=== PATIENT | male | born 1945 | race Caucasian/White ===

== ENCOUNTER 2019-11-10 11:18 | Inpatient (IN) | payer OTHER, MEDICAID ==
[~2019-11-10] VITALS: Ht 172.7 cm; Wt 86.7 kg
[2019-11-10] MEDS ORDERED: NORVASC5 MG PO (12:12)
[2019-11-10] MEDS ORDERED: Ventolin 02.5 MG/3 M NEB (12:12)
[2019-11-10] MEDS ORDERED: ARTIFICIAL TEAR1514 OU (12:13)
[2019-11-10] MEDS ORDERED: ASPIRIN81 M1 PO (12:15)
[2019-11-10] MEDS ORDERED: ATORVASTATIN CA40 M1 PO (12:18)
[2019-11-10] MEDS ORDERED: CHLORASEPTIC 1177 ML MM (12:19)
[2019-11-10] MEDS ORDERED: DEPAKOTE250 MG PO (12:20)
[2019-11-10] MEDS ORDERED: DEPAKOTE500 MG PO (12:21)
[2019-11-10] MEDS ORDERED: EXEL13.31 T (12:22)
[2019-11-10] MEDS ORDERED: NATURE'S BLEND F1 MG PO (12:27)
[2019-11-10] MEDS ORDERED: IRON325 M1 PO (12:27)
[2019-11-10] MEDS ORDERED: MUCINEX ER600 MG PO (12:28)
[2019-11-10] MEDS ORDERED: NAMENDA-21 PO (12:29)
[2019-11-10] MEDS ORDERED: REMERON15 M2 PO (12:30)
[2019-11-10] MEDS ORDERED: VALSARTAN320 MG PO (12:31)
[2019-11-10] MEDS ORDERED: REPLESTA50000 UNIT PO (12:32)
[2019-11-11 01:05] VITALS: BP 155/87
--- NOTE | 2019-11-11 01:05 | NUR ---
ROSSY TORRE a 74 year old M admitted via stretcher from the ADMITTING as a voluntary admission. Arrived on unit at 0105. ALLERGIES: MKA. Vital signs are: [id number] 155/87. The client's POA,Elli Patino,gave verbal consent for the following forms with stated understanding: Authorization For The Release of Medical Information, Clothing List, Consent to Voluntary Admission and Hospitalization, Consent and Release Forms/Receipt of Rights, Acknowledgement of Advance Directive Information, Behavioral Health Consent Form, and Informed Consent of Medications. Admitted under the services of Dr. SCOT CORNELL,[facility]. A search was conducted and hazardous articles were removed. Client was oriented to the unit. SANGEETHA FREY
--- NOTE | 2019-11-11 01:20 | NUR ---
Called and notified Dr. France admission to floor. Dr. Dennison said to place medical management under Dr. Conrad.
[2019-11-11 01:44] LABS: BASO % 0.2 % (0.0-1.0); HEMATOCRIT 37.5 % (42.0-52.0); HEMOGLOBIN 12.2 g/dl (14.0-18.0); LYMPH # 0.7 10*3/uL (1.3-4.4); LYMPH % 7.9 % (27.0-41.0); MEAN CELL VOLUME 91.5 fl (80.0-94.0); MEAN CORPUSCULAR HGB 29.8 pg (27.0-31.0); MEAN CORPUSCULAR HGB CONC 32.5 g/dl (33.0-37.0); MEAN PLATELET VOLUME 11.4 fl (9.6-12.3); MONO # 0.5 10*3/uL (0.1-1.0); MONO % 5.3 % (3.0-9.0); NEUT # 7.4 10*3/uL (2.3-7.9); NEUT % 86.1 % (47.0-73.0); PLATELET COUNT AUTOMATED 146 10*3/uL (130-400); RED CELL DISTRI WIDTH 13.6 % (0-14.5); WHITE BLOOD COUNT 8.5 10*3/uL (4.8-10.8)
[2019-11-11 01:59] LABS: ALBUMIN 3.5 gm/dl (3.1-4.5); ALKALINE PHOSPHATASE 73 U/L (45-117); BUN 21 mg/dl (7-24); CHLORIDE 104 mmol/L (98-107); CHOLESTEROL 120 mg/dL (<200); CREATININE 1.04 mg/dL (0.70-1.30); HDL CHOLESTEROL 64 mg/dl (40-60); LDL CHOLESTEROL 47 mg/dL (9-159); SGOT/AST 13 IU/L (3-35); SGPT/ALT 18 U/L (12-78); SODIUM 134 mmol/L (136-145); TOTAL PROTEIN 7.3 gm/dL (6.4-8.2); TRIGLYCERIDES 43 mg/dl (<150); VLDL CHOLESTEROL 9 mg/dL (6-40)
[2019-11-11 02:09] LABS: VALPROIC ACID (DEPAKENE) 33.5 ug/ml (50-100)
[2019-11-11 02:25] VITALS: BP 155/87
--- NOTE | 2019-11-11 05:55 | NUR ---
Patient slept 0 hours throughout shift. Q 15 minute safety checks continued and maintained.
[2019-11-11 07:43] LABS: VITAMIN D, 25-HYDROXY 44.1 ng/mL (30-100)
[2019-11-11 07:57] VITALS: BP 137/64
--- NOTE | 2019-11-11 08:00 | NUR ---
Treatment Plan meeting was held with TD Orosco, RN, AT, HEALTH PHYSICIST-S and Barrel Header in attendance. Plan for discharge Sat/. Pt. came to [facility] from [facility].
--- NOTE | 2019-11-11 09:27 | NUR ---
PHYSICAL THERAPY Screen [facility] Please consult PT if pt has a decline from baseline functioanl status Anny Webster PT
[2019-11-11 09:47] LABS: BILIRUBIN NEGATIVE (NEGATIVE); BLOOD NEGATIVE (NEGATIVE); CLARITY SL CLOUDY (CLEAR); COLOR YELLOW (YELLOW); GLUCOSE NEGATIVE (NEGATIVE); KETONE NEGATIVE (NEGATIVE); SPECIFIC GRAVITY 1.015 (1.005-1.030)
[2019-11-11 09:48] LABS: LEUKO ESTERASE NEGATIVE (NEGATIVE); NITRITE NEGATIVE (NEGATIVE); UROBILINOGEN 0.2 E.U./dl (0.2-1.0)
[2019-11-11 09:52] LABS: MUCOUS TRACE; WBC 0-2 wbc/hpf (0-5)
--- NOTE | 2019-11-11 09:55 | NUR ---
Spoke with Marilu nieves [facility]. Pt. is Economic Development Manager Resident at facility and will return at discharge. Discussed Discharge Plan and Faxed clinical Updates to facility .
--- NOTE | 2019-11-11 11:38 | NUR ---
AM GROUP PT ATTENDED MORNING GROUP THERAPY AND PARTICIPATED BY COLORING TO THE BEST OF HIS ABILITY AND LISTENING TO MUSIC. PT WAS QUIET AND ON TASK. PT EXHIBITED NO AGITATION OR AGGRESSION WHILE IN GROUP.
--- NOTE | 2019-11-11 15:39 | NUR ---
PM GROUP PT ATTENDED AFTERNOON GROUP THERAPY AND PARTICIPATED BY COLORING WITH MARKERS. PT WAS CONTENT THE ENTIRE GROUP TO "MESS" WITH THE MARKERS. PT EXHIBITED NO AGITATION OR AGGRESSION WHILE IN GROUP.
--- NOTE | 2019-11-11 16:07 | NUR ---
PT ALERT TO PERSON WITH CONFUSION AND MEMORY DEFICITS NOTED. IRRITABLE AT TIMES. PT UP AND DOWN OUT OF WHEEL CHAIR UNSTEADY. PT SWAYING SIDE TO SIDE WHILE STANDING UP. PERSONAL ALARM IN PLACE. PT CONTINUOUSLY GETTING UP DESPITE REDIRECTION. PT THEN PLACED IN NABEEL CHAIR TO CALM PATIENT.1:1 PROVIDED FOR THERAPEUTIC COMMUNICATION. ENCOURAGED PT TO ATTEND/PARTICIPATE IN GROUP. ENCOURAGE MEDICATION COMPLIANCE. NO INAPPROPRIATE DEFACTING NOTED. NO PHYSICAL OR VERBAL AGGRESSION NOTED. MEDICATION COMPLIANT WITHOUT DIFFICULTY. SEE [facility] FLOWSHEET FOR SPECIFIC MONITORING. PT ATTENDED GROUP AND PARTICIPATED. WAS COLORING HOWEVER WAS WITHDRAWN TO SELF. CONTINUE TO ENCOURAGE MEDICATION COMPLIANCE, ATTENDANCE/PARTICIPATION. CONTINUE TO PROVIDE 1:1 FOR THERAPEUTIC COMMUNICATION.
[2019-11-11 19:48] VITALS: BP 135/76
--- NOTE | 2019-11-11 22:47 | NUR ---
P--CONFUSION, ANGER ISSUES, VIOLENCE I--TRIED TO TALK WITH CLIENT AND LET HIM VENT. MEDICATED PER ORDERS EARLIER, BEDBATH COMPLETED WITH ASSIST OF 3. REDIRECTED AND REORIENTED R--BECAME PHYSICALLY VIOLENT DURING BATH, SCATCHING AT STAFF, TRYING TO BITE, KICKING AND PUNCHING. UNABLE TO REDIRECT P- MONITOR FOR CHANGES IN BEHAVIOR/MOOD AND SAFETY
--- NOTE | 2019-11-12 00:28 | NUR ---
ATIVAN EFFECTIVE AT THIS TIME
--- NOTE | 2019-11-12 04:33 | NUR ---
24 HR chart check completed.
--- NOTE | 2019-11-12 05:23 | NUR ---
SLEPT A BROKEN 3.5 HOURS IN CHAIR CLOSE TO NURSES STATION. REMAINS CONFUSED TO PLACE AND TIME. CONTINUE TO ATTEMPT REORIENTATION
--- NOTE | 2019-11-12 05:51 | NUR ---
INCONTINENT OF URINE. CLEANED UP AND CLOTHING CHANGED. VERY COOPERATIVE AND HELPFUL THIS MORNING. NO OUTBURTS AT THIS TIME. REFUSED ORAL CARE.
[2019-11-12 08:00] VITALS: BP 138/76
--- NOTE | 2019-11-12 08:00 | NUR ---
Treatment Plan meeting was held with Dr. Almaraz, RN, AT, WAREHOUSE FREIGHT HANDLER-S and Pharmacy Intake Coordinator in attendance. Plan for discharge next week. Patient will return to the [facility].
--- NOTE | 2019-11-12 08:14 | NUR ---
DR ROBIN ON UNIT TO SEE PATIENT
--- NOTE | 2019-11-12 12:02 | NUR ---
Family meeting held via the phone with pt's DPOAHC Elli Sukumar. Elli shared that pt and she have been for 30 years after a 23 yr marriage. Elli stated that pt has no one else and that is why Elli became involved in pt's life 18 years ago. Elli describes pt as "weird" in that pt does not like people and prefers to be a loner. 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 Pt served in the [employer] during [employer] War but was not involved in combat. D/C plan is for [facility].
--- NOTE | 2019-11-12 15:16 | NUR ---
PHYSICAL THERAPY Lesly completed moderate level of complexity [id number] recomend return to [facility] with further follow up therapy as approp. PT to work on transfers,amb,balance and strengthening. Anny Webster PT
--- NOTE | 2019-11-12 15:38 | NUR ---
PM GROUP PT WAS PRESENT FOR AFTERNOON GROUP THERAPY SEATED IN A NABEEL CHAIR. PT KEPT HIS EYES SHUT TIGHT EVEN WHEN "READING" THE NEWSPAPER. PT WAS REACHING AND HANDLING "SOMETHING" THAT WAS NOT THERE, WITH EYES CLOSED, OR WOULD GRAB SOMETHING ON THE TABLE AND "HANDLE" IT. PT EXHIBITED NO AGITATION OR AGGRESSION AND WOULD RESPOND WHEN SPOKEN TO WITHOUT OPENING HIS EYES.
--- NOTE | 2019-11-12 16:46 | NUR ---
P: COMBATIVE WITH HOC. PT WAS BITING, HITTING, AND KICKING THIS AM WITH HOC I: REDIRECTED PT. REORIENTED. GAVE STEP BY STEP INSTRUCTIONS AND PROMPTS ON WHAT WAS HAPPENING. R: PT WAS ABLE TO CALM DOWN WITH STEP BY STEP AND PROMPTING. HOC COMPLETED AND PLACED IN NABEEL CHAIR AGAIN. P: CONTINUE TO OFFER THERAPEUTIC COMMUNICATION. CONTINUE TO GIVE STEP BY STEP AND PROMPING FOR HOC BEING COMPLETED. REDIRECT AND REORIENT WHEN NEEDED. CONTINUE TO MONITOR BEHAVIORS WITH Q15 MINUTE SAFETY CHECKS.
--- NOTE | 2019-11-12 18:41 | NUR ---
ANTONIA Salazar FROM [facility] ON UNIT TO ASSESS PT.
[2019-11-12 19:42] VITALS: BP 122/77
--- NOTE | 2019-11-12 21:16 | NUR ---
P--IRRITABLE AND AGRESSIVE WITH HANDS ON CARE/ ISOLATION I--INTERACTED WITH CLIENT. MEDICATIONS GIVEN PER DOCTORS ORDERS. REVIEWED CLIENTS DAY UP TO HIS ABILITY. R-- I HAD A GOOD DAY THANKS. COOPERATIVE WITH MEDICATION AND EYE DROPS. NO OTHER CONVERSATION FROM CLIENT P--MONITOR FOR CHANGES IN MOOD/BEHAVIOR. MONITOR Q 15 MINUTES AND PRN
--- NOTE | 2019-11-12 22:06 | NUR ---
REFUSED ORAL CARE.
--- NOTE | 2019-11-12 22:48 | NUR ---
assist of 2 TO GET CLIENT INTO BED. MUCH ENCOURAGEMENT AND STEP BY STEP INSTRUCTIONS NEEDED. CLIENT CALM AND PARTICIPATING
--- NOTE | 2019-11-13 02:02 | NUR ---
24 HR chart check completed.
--- NOTE | 2019-11-13 06:21 | NUR ---
REMAINS SLEEPING. REFUSES TO GET UP AT THIS TIME.
[2019-11-13 07:41] VITALS: BP 142/84
--- NOTE | 2019-11-13 07:45 | NUR ---
PHYSICAL THERAPY Patient seen this am for therapy visit and was resting supine in bed upon therapist arrival. Patient identified by name / and reports no new c/o's at this time. Patient also presented with increased B UE tremors and transfers supine to sit EOB with MOD A x 1. Patient needed a few minutes static EOB sit to fully awaken, then performed sit to stand transfer, MOD/CELLOPHANER and was very unsteady on his feet. Patient needed several v/c's to stand tall and completed SPT to Kylie chair, CELLOPHANER/MOD, requiring v/c to improve safe step sequence. Patient remained in Kylie chair with lap tray and body alarm while being transported to activity room for breakfast. Patient remained in activity room under U staff Supervision and will continue per POC as tolerated. Total treatment time 13 minutes. Solo Kwon, CAPACITY PLANNING ANALYST
--- NOTE | 2019-11-13 08:00 | NUR ---
Treatment Plan meeting was held with TD Orosco, RN, AT, DIVISIONAL HUMAN RESOURCES DIRECTOR-S and Mathematics Improvement Teacher in attendance. Plan for discharge Next Saturday or Saturday or when Stable. [facility].
--- NOTE | 2019-11-13 09:30 | NUR ---
DR ROBIN ON UNIT TO SEE PATIENT
--- NOTE | 2019-11-13 12:37 | NUR ---
Susan disla [facility] in to see patient for Onsite Assessment. Advised of Plans to return Next Week Saturday or Saturday. Provided with Updates and Faxed Clinical Updates to Facility.
--- NOTE | 2019-11-13 16:31 | NUR ---
PHYSICAL THERAPY CO-SIGN I approve of the Physical Therapy notes written above. Anny Webster PT
--- NOTE | 2019-11-13 16:58 | NUR ---
NO ADVERSE MOODS OR BEHAVIORS NOTED AT THIS TIME. PT ALERT TO PERSON ONLY, CONFUSION AND SHORT TERM MEMORY DEFICITS NOTED PER PT BASELINE. PT MED COMPLIANT WITHOUT DIFFICULTY. PT CALM, MOOD IS STABLE. PT PLEASANT AND COOPERATIVE WITH STAFF AND PEERS. PT UP IN DINING ROOM WATCHING MOVIES THIS AFTERNOON. NO HALLUCINATIONS OR DELUSIONS NOTED. NO SUICIDAL THOUGHTS OR BEHAIVORS NOTED. NO PHYSICAL OR VERBAL AGGRESSION NOTED AT THIS TIME. PT UP TO A GERICHIAR, REQUIRES 2 STAFF ASSIST FOR TRANSFERS AND CARE. PT WALKED SHORT DISTANCE FROM HALLWAY TO BATHROOM USING WHEELED WALKER. PT CONTINENT OF BOWEL AND BLADDER, EPISODES OF INCONTINENCE NOTED, CARE PROVIDED NEEDED. PLAN IS TO MONITOR PT BEHAVIORS ON Q15 MIN SAFETY CHECKS, ENCOURAGE MED COMPLIANCE AND PROVIDE MED EDUCATION, PROVIDE EMOTIONAL SUPPORT AND 1:1 FOR PT TO VOICE FEELINGS, ENCOURAGE GROUP PARTICIPATION AND SOCIALIZATION.
[2019-11-13 19:25] VITALS: BP 111/64
--- NOTE | 2019-11-13 21:34 | NUR ---
PLEASENT AND INTERACTIVE. MEDICATION EDUCATION COMPLETED. READING PAPER. MOVES SELF AROUND IN CHAIR. NO BEHAVIORS. DENIES ANY PROBLEM. WILL CONTINUE TO MONITOR FOR CHANGES IN MOOD/BEHAVIOR AND MONITOR Q 15 MINUTES AND PRN FOR SAFETY
--- NOTE | 2019-11-14 04:35 | NUR ---
24 HR chart check completed.
[2019-11-14 07:55] VITALS: BP 127/74
--- NOTE | 2019-11-14 11:58 | NUR ---
AM GROUP/EXERCISE/BINGO/CRAFT PT NOT IN ATTENDANCE AT THIS TIME DUE TO SLEEPING. PT WILL CONTINUE TO BE ENCOURAGED TO ATTEND AN DPARTICIPATE IN FUTURE GROUP SESSIONS TO THE BEST OF PT ABILITY.
--- NOTE | 2019-11-14 15:45 | NUR ---
NO ADVERSE MOOD OR BEHAVIORS NOTED AT THIS TIME. PT ALERT TO PERSON ONLY, CONFUSION AND SHORT TERM MEMORY DEFICITS NOTED PER PT BASELINE. PT CALM, INTERACTIVE WITH STAFF AND PEERS. MOOD IS STABLE. NO HALLUCINATIONS OR DELUSIONS NOTED. NO SUICIDAL THOUGHTS OR BEHAVIORS NOTED. PT UP TO A GERICHAIR, WILL WALK SHORT DISTANCES VIA 2 STAFF ASSIST. PT CONTINENT OF BOWEL AND BLADDER. PLAN IS TO MONITOR PT BEHAVIORS ON Q15 MIN SAFETY CHECKS, ENCOURAGE MED COMPLIANCE, PROVIDE EMOTIONAL SUPPORT AND 1:1 FOR PT TO VOICE FEELINGS, ENCOURAGE GROUP PARTICIPATION AND SOCIALIZATION.
--- NOTE | 2019-11-14 15:52 | NUR ---
PM GROUP/RIDDLES/CRAFT PT IN ATTENDANCE AND PARTICIPATED IN PAINTING CRAFT. PT PLEASANTLY CONFUSED BUT ON TASK WITH CRAFT. PT WILL CONTINUE TO ATTEND AND PARTICIPATE IN FUTURE GROUP SESSIONS TO BEST OF ABILITY.
[2019-11-14 20:00] VITALS: BP 127/80
--- NOTE | 2019-11-14 21:51 | NUR ---
Patient alert to self only with confusion noted and is patient's baseline. Memory deficits noted. Patient calm,pleasant and cooperative at this time. Patient in chair in diningroom with other patients watching movie on TV. No overt s/s of any responding to any internal stimuli noted at this time. Patient compliant with medication without any difficulty. Provided 1:1 for emotional support. Patient talked with non-sensical sentences with this nurse. Redirected/reoriented when needed. Plan to continue to encourage medication compliance. Also continue to offer emotional support and redirect/reorient when needed/appropriate. Will continue to monitor moods/behaviors. Q 15 minute safety checks continued and maintained. See [facility] flowsheet for further documentation.
--- NOTE | 2019-11-15 05:27 | NUR ---
Patient slept approx. 7.5 hours throughout shift. Q 15 minute safety checks continued and maintained.
[2019-11-15 06:59] LABS: BUN 21 mg/dl (7-24); CHLORIDE 109 mmol/L (98-107); CREATININE 0.97 mg/dL (0.70-1.30); POTASSIUM 4.3 mmol/L (3.5-5.1); SODIUM 141 mmol/L (136-145)
[2019-11-15 07:50] VITALS: BP 124/73
--- NOTE | 2019-11-15 18:48 | NUR ---
PATIENT IS ALERT TO SELF WITH CONFUSION; LONG/SHORT TERM MEMORY DEFICITS. MOOD IS STABLE. NO VOICED STATEMENT OF HI/SI OR PAIN. NO RESPONSE TO INTERNAL STIMULI OBSERVED. 1 PERSON ASSIST WITH ACTIVITIES OF DIALY LIVING. INCONTINENT OF BOWEL AND BLADDER. SET UP FOR MEALS, INTAKES ARE GOOD WITH ADEQUATE FLUIDS. UP IN GERICHAIR FOR COMFORT. INTERACTIVE WITH STAFF. CONTINUE TO MONITOR FOR AGGRESSION; PROVIDE ONE ON ONE AND REDIRECTION NEEDED.
[2019-11-15 21:46] VITALS: BP 129/68
--- NOTE | 2019-11-16 01:29 | NUR ---
Patient alert to self only with confusion noted and is patient's baseline. Memory deficits noted. Patient calm,pleasant and cooperative at this time. Patient in chair in diningroom with other patients watching movie on TV. No overt s/s of any responding to any internal stimuli noted at this time. Patient compliant with medication without any difficulty. Provided 1:1 for emotional support. Patient talked with non-sensical sentences with this nurse. Patient more interactive with other patients and staff. Redirected/reoriented when needed. Plan to continue to encourage medication compliance. Also continue to offer emotional support and redirect/reorient when needed/appropriate. Will continue to monitor moods/behaviors. Q 15 minute safety checks continued and maintained. See [facility] flowsheet for further documentation.
--- NOTE | 2019-11-16 05:37 | NUR ---
Patient slept approx. 5 hours throughout shift. Q 15 minute safety checks continued and maintained.
[2019-11-16 07:45] VITALS: BP 143/79
--- NOTE | 2019-11-16 08:00 | NUR ---
Treatment Plan meeting was held with Dr. Almaraz, TD Orosco, RN, AT, DOPE AND FABRIC WORKER-S and Press Pipe Inspector. Plan for discharge Sat/. Pt. will return to the [facility] at discharge.
--- NOTE | 2019-11-16 11:41 | NUR ---
AM GROUP MORNING GROUP THERAPY WAS SHORTENED DUE TO A PT 1:1. PT WAS PRESENT FOR GROUP SITTING UPRIGHT IN A NABEEL CHAIR WITH THE TRAY ON. PT WAS SMILING AND "TALKATIVE" PT WAS IRRITATING A PEER BECAUSE HE KEPT LOOKING AT HER BUT REASONED WITH THE PEER THAT PT MAY THINK HE KNOWS HER. PT WAS PLEASANT AND EXHIBITED NO AGITATION OR AGGRESSION WHILE IN THE DAYROOM
--- NOTE | 2019-11-16 12:00 | NUR ---
Spoke with Devorah Diaz at [facility]. Notified of Plans to discharge Sat/. Provided with updates, discussed Discharge Plan and Faxed Clinical Updates to Facility.
--- NOTE | 2019-11-16 12:58 | NUR ---
PATIENT IS ALERT TO SELF WITH CONFUSION; LONG/SHORT TERM MEMORY DEFICITS. MOOD IS STABLE. NO VOICED STATEMENT OF HI/SI OR PAIN. NO RESPONSE TO INTERNAL STIMULI OBSERVED. 1 PERSON ASSIST WITH ACTIVITIES OF DIALY LIVING. INCONTINENT OF BOWEL AND BLADDER. SET UP FOR MEALS, INTAKES ARE GOOD WITH ADEQUATE FLUIDS. UP IN GERICHAIR FOR COMFORT. Q 15 MINUTE SAFETY CHECK. MEDICATION COMPLAINT. INTERACTIVE WITH STAFF. CONTINUE TO MONITOR FOR AGGRESSION; PROVIDE ONE ON ONE AND REDIRECTION NEEDED.
--- NOTE | 2019-11-16 15:37 | NUR ---
PM GROUP PT ATTENDED AFTERNOON GROUP THERAPY AND PARTICIPATED BY CONVERSING WITH THIS MAIL MESSENGER. PT WAS CALM AND TALKATIVE ALTHOUGH USING WORD SALAD. PT WAS BEGINNING TO AND WAS NEEDING TO GO HOME. PT WAS REDIRECTABLE. PT EXHIBITED NO AGITATION OR AGGRESSION WHILE IN GROUP
[2019-11-16 19:44] VITALS: BP 134/80
--- NOTE | 2019-11-16 20:07 | NUR ---
24 HR chart check completed.
--- NOTE | 2019-11-16 20:47 | NUR ---
EVENING/POSITIVE-SELF TALK PT IN ATTENDNACE BUT UNABLE TO PARTICIPATE DUE TO LEVELS OF COGNITION. PT OFFERED ALTERNATE ACTIVITY BUT STATES "NAH, I DON'T WANT TO DO THAT RIGHT NOW" PT EXPRESSED NO AGGRESSION OR ANGER AT THIS TIME. PT WILL CONTINUE TO ATTEND AND PARTICIPATE TO BEST PF PT ABILITY IN FUTURE GROUP SESSIONS.
--- NOTE | 2019-11-17 00:16 | NUR ---
P-CONFUSION I-ENCOURAGE VENTILATION OF FEELINGS. PROVIDE EMOTIONAL SUPPORT. ASSESS ORIENTATION, REORIENT, ADMINISTER MEDICATIONS. MONITOR SLEEP R-PT SAT IN THE DINING ROOM QUIETLY WITH OTHER PEERS KEEPING TO HIMSELF. CONFUSED WITH MEMORY DEFICITS. ORIENTED TO SELF ONLY. ANSWERS QUESTIONS BUT IS LIMITED VERBALLY. ATE SNACK. COMPLIANT WITH MEDICATIONS. 2 STAFF ASSIST. P-CONTINUE TO MONITOR. PROVIDE PHYSICAL ASSISTANCE & EMOTIONAL SUPPORT.
--- NOTE | 2019-11-17 05:12 | NUR ---
PT HAS SLEPT PAST 14
[2019-11-17 07:46] VITALS: BP 115/66
--- NOTE | 2019-11-17 08:00 | NUR ---
Treatment Plan meeting was held with Dr. Almaraz, RN, AT, [facility]-S and Spring Former Machine. Plan for discharge Saturday with return to the [facility].
--- NOTE | 2019-11-17 08:34 | NUR ---
DR. MACKENZIE ON UNIT TO ASSESS PT, UPDATE PROVIDED.
--- NOTE | 2019-11-17 09:00 | NUR ---
PHYSICAL THERAPY Patient seen this am for therapy visit and was sitting up in activity room Kylie chair upon therapist arrival. Patient identified by name / and was very pleasant this morning. Patient transported via Kylie chair to hallway rail and performed several sit to stand transfers, MIN A plus single handrail support. Patient needed v/c to improve upright posture, tolerating < 1 minute static stand each trial. Patient also ambulated GREEN MATERIAL VALUE ADDED ASSESSOR/MIN, single handrail support, 30'x 1, demonstrating very slow "shuffling" gait pattern, decreased stride. Patient very unsteady during 180 degree turn around and was very cautious secondary to fear of falling. Patient fatigues quickly and returned to Kylie chair with lap tray and body alarm. Patient remained in activity room under [facility] staff Supervision and will continue per POC as tolerated, total treatment time 16 minutes. Solo Kwon, FAMILY PHYSICIAN
--- NOTE | 2019-11-17 10:49 | NUR ---
NO ADVERSE MOODS OR BEHAVIORS NOTED. MEDICATION COMPLIANT WITHOUT DIFFICULTY. PT CALM AND COOPERATIVE. BEHAVIORS MONITORED WITH Q15 MINUTE SAFETY CHECKS. 1:1 PROVIDED FOR THERAPEUTIC COMMUNICATION. WILL CONTINUE TO ENCOURAGE MEDICATION COMPLIANCE. CONTINUE TO ENCOURAGE PT TO ATTEND GROUP. SEE [facility] FLOWSHEET FOR SPECIFIC MONITORING.
--- NOTE | 2019-11-17 11:41 | NUR ---
AM GROUP/MUSIC THERAPY PT WAS PRESENT FOR MORNING GROUP THERAPY AND SAT AT TABLE WITH PEERS BUT IS UNABLE TO PARTICIPATE AT THIS TIME DUE TO COGNITIVE IMPAIRMENT. PT WAS QUIET AND OBSERVANT BEFORE FALLING ASLEEP.
--- NOTE | 2019-11-17 15:39 | NUR ---
PM GROUP PT WAS IN THE [place] IN A NABEEL CHAIR WITH THE TRAY ON AND WAS AGITATED AND CONFUSED. PT WAS BROUGHT INTO THE DAYROOM AND GIVEN TIME TO VENT. PT THEN CALMED AND BEGAN WORKING ON A PAINTING. PT WAS QUIET AND CALM AND SOON FELL ASLEEP WITH BRUSH IN HAND. PT SLEPT FOR THE REMAINDER OF GROUP.
--- NOTE | 2019-11-17 16:22 | NUR ---
Spoke with Elli Patino and notified her of plans to discharge Patient and peanut picker time of 10:00 a.m. via [facility]. Notified Liason from the [facility] of Planned discharge.
--- NOTE | 2019-11-17 19:40 | NUR ---
24 HR chart check completed.
[2019-11-17 19:51] VITALS: BP 120/65
--- NOTE | 2019-11-17 20:40 | NUR ---
EVENING/MUSIC/YAHTZEE PT ENCOURAGED TO PARTICIPATE WITH VARIETY OF ACTIVITY, BUT PT KEPT STATING "LATER I CAN DO THAT , NO THANK YOU NOT NOW" PT OBSERVANT OF PEERS WITH NO ANGER OR AGGRESSION EXPRESSED. PT WILL CONTINUE TO ATTEND AN DPARTICIPATE IN FUTUYRE GROUP SESSIONS TO BEST OF PT ABILITY.
--- NOTE | 2019-11-17 21:12 | NUR ---
P-CONFUSION I-ENCOURAGE VENTILATION OF FEELINGS. PROVIDE EMOTIONAL SUPPORT. ASSESS ORIENTATION, REORIENT, ADMINISTER MEDICATIONS. MONITOR SLEEP R-PT SAT IN THE DINING ROOM QUIETLY WITH OTHER PEERS KEEPING TO HIMSELF & WATCHING TV. PLEASANTLY CONFUSED WITH MEMORY DEFICITS. STATED THAT IN THE PAST HE WAS IN THE . ORIENTED TO SELF ONLY. ANSWERS QUESTIONS BUT IS LIMITED VERBALLY. ATE SNACK. COMPLIANT WITH MEDICATIONS. 2 STAFF ASSIST. P-CONTINUE TO MONITOR. PROVIDE PHYSICAL ASSISTANCE & EMOTIONAL SUPPORT.
--- NOTE | 2019-11-17 23:00 | NUR ---
PT AWAKE & OUT OF BED AT THIS TIME. NOTED TO BE PEEING AT THE DOOR WAY & IN THE LOZADA. INCREASED IRRITABLLITY WITH HANDS ON CARE & REDIRECTION. ASSISTED TO A NABEEL CHAIR.
--- NOTE | 2019-11-18 05:11 | NUR ---
PT HAS SLEPT PAST 020
--- NOTE | 2019-11-18 07:45 | NUR ---
Patient resting quietly with no c/o discomfort. Respirations easy and regular. Vital signs stable. No overt distress. MEAGAN BREAUX ON UNIT TO SEE PT AT THIS TIME. UPDATE GIVEN.
[2019-11-18 07:53] VITALS: BP 130/71
--- NOTE | 2019-11-18 08:00 | NUR ---
Treatment plan meeting was held with Dr. Almaraz RN, COURT REPORTER-S and Asbestos Brake Lining Finisher Helper. Plan for discharge today with grain picker time 1:00 via Ambulance. Pt. will return to the [facility].
--- NOTE | 2019-11-18 08:10 | NUR ---
Treatment Plan meeting was held with Dr. Almaraz, RN, AT, PHARMACY CLINICAL COORDINATOR-S and Straight Line Press Setter in attendance. Plan for discharge today with return to the [facility]. Call Placed to Family and Spoke with Nan to notify of Discharge.
--- NOTE | 2019-11-18 08:15 | NUR ---
Spoke with Devorah Diaz from the [facility]. Confirmed Discharge today and Tire Service Technician time.
--- NOTE | 2019-11-18 08:31 | NUR ---
ON UNIT TO SEE PT AT THIS TIME. MADE AWARE OF DISCHARGE FOR TODAY AT 10AM.
[2019-11-18] MEDS ORDERED: MEMANTINE HCL10 MG PO (09:39)
[2019-11-18] MEDS ORDERED: ROZEREM8 MG PO (09:39)
[2019-11-18] MEDS ORDERED: EXELON13.3 MG/21 T (09:39)
[2019-11-18] MEDS ORDERED: DIVALPROEX SOD500 MG PO (09:39)
--- NOTE | 2019-11-18 09:40 | NUR ---
ATTEMPTED TO CALL NURSE TO NURSE, PTS NURSE UNAVALIABLE AT THIS TIME SHE WILL RETURN CALL.
--- NOTE | 2019-11-18 09:57 | NUR ---
NO ADVERSE MOODS OR BEHAVIORS NOTED THIS AM. PT IS ALERT WITH CONFUSION, RESPS EASY AND EVEN ON ROOM AIR. MOOD STABLE, AFFECT APPROPRIATE. SPEECH IS WNL AND COHERENT, ABLE TO MAKE NEEDS KNOWN WITHOUT DIFFICULTY. PT CALM AND COOPERATIVE. PT DENIES SI/HI, INTENT OR PLAN. PT DENIES HALLUCINATIONS, NO RESPONSE TO INTERNAL STIMULI NOTED. NO PARANOIA OR DELUSIONS NOTED. PT IS MED COMPLIANT WITHOUT DIFFICULTY. NO DISTRESS NOTED. NO AGGRESSIVE BEHAVIORS DISPLAYED. PLAN FOR HOSPITAL DISCHARGE THIS DATE. ATTEMPTED TO CALL NURSE TO NURSE REPORT TO [facility], NURSE UNAVAILABLE, WILL RETURN CALL.
--- NOTE | 2019-11-18 10:10 | NUR ---
PT DISCHARGED AT THIS TIME BACK TO [facility] AT THIS TIME PER [facility] AMBULANCE STRETCHER WITH 2 RETAIL BANKER. DISCHARGE INSTRUCTIONS WERE PROVIDED FOR THE FACILITY AND COPIES WILL BE SENT TO [facility]. ALL PERSONAL BELONGINGS WERE SENT WITH THE PT, PT WEARING GLASSES AT TIME OF DISCHARGE. PT LEFT THE UNIT IN STABLE CONDITION AT 1010 VIA AMBULANCE WITH GREENBELT ESCORT PRESENT.
--- NOTE | 2019-11-18 10:13 | NUR ---
NURSE TO NURSE REPORT GIVEN TO ALEJO AT THE [facility].
--- NOTE | 2019-11-18 10:14 | NUR ---
Discharge Paperwork Faxed to the [facility] Attn: admissions [phone].
--- NOTE | 2019-11-19 15:32 | NUR ---
PHYSICAL THERAPY CO-SIGN I approve of the Physical Therapy notes written above. Anny Webster PT
== END 2019-11-18 10:10 | disposition other institution (70) | DRG 883 ==
LOC: 3N 11:18
PROVIDERS: Nurse Practitioner Women's Health; ADMIT Psychiatry & Neurology Psychiatry
DX: F63.81 Intermittent explosive disorder (principal); E87.1 Hypo-osmolality and hyponatremia; F02.81 Dementia in other diseases classified elsewhere, unspecified severity, with behavioral disturbance; R73.9 Hyperglycemia, unspecified; Z51.5 Encounter for palliative care; D50.9 Iron deficiency anemia, unspecified; Z66 Do not resuscitate; G30.9 Alzheimer's disease, unspecified; F25.0 Schizoaffective disorder, bipolar type; F41.1 Generalized anxiety disorder; E66.3 Overweight; F32.9 Major depressive disorder, single episode, unspecified; K21.9 Gastro-esophageal reflux disease without esophagitis; E53.8 Deficiency of other specified B group vitamins; R13.10 Dysphagia, unspecified; E55.9 Vitamin D deficiency, unspecified; E78.5 Hyperlipidemia, unspecified; I10 Essential (primary) hypertension; J45.909 Unspecified asthma, uncomplicated; H04.123 Dry eye syndrome of bilateral lacrimal glands; Z68.29 Body mass index [BMI] 29.0-29.9, adult; Z86.73 Personal history of transient ischemic attack (TIA), and cerebral infarction without residual deficits; Z79.82 Long term (current) use of aspirin; Z79.899 Other long term (current) drug therapy